=== PATIENT | female | born 1995 | race Caucasian/White ===

== ENCOUNTER 2016-07-19 18:38 | Emergency (ER) | payer BC ==
[~2016-07-19] VITALS: Ht 160 cm; Wt 58.7 kg
[~2016-07-19 18:38] MED LIST: BCPILLS PO; BECL0.072 INH
[2016-07-19 18:51] VITALS: TEMP 37; Ht 160 cm; Wt 58.7 kg
[2016-07-19] MEDS ORDERED: ALBU18002 PO (18:55)
[2016-07-19] MEDS ORDERED: HYCODAN 60ML BOTTLE HOMEPACK PO STA (19:18)
[2016-07-19] MEDS ORDERED: AZITHROMYCIN 250 MG TAB PO STA (19:18)
[2016-07-19] MEDS ORDERED: HYDR5SYP11 PO (19:22)
[2016-07-19] MEDS ORDERED: AZIT250T5 PO (19:22)
--- NOTE | 2016-07-19 19:23 | EMERGENCY ROOM VISIT NOTE ---
History First contact with patient: 19:01 Chief Complaint: RESPIRATORY PROBLEMS Stated Complaint: ASTHMA COUGH, TROUBLE BREATHING, SWOLLEN TONSILS Nursing Triage Summary: pt c/o cough and asthma problems for past month, seen pcp last week and placed on steroids and antibiotic and when she was on steroid she didn't cough but now she is coughing again since steroids are done, tonsils are swollen now also History of Present Illness The patient is a 21 year old female who presents to the Emergency Room via private vehicle with complaints of "asthma cough, trouble reading, swollen tonsils". The patient states that for the past month she has been having problems with her chronic asthma, has been expressing a cough. She states that this all seemed to a began one month ago. The cough is nonproductive in nature. She also notes a tingling sensation in the throat, with some gagging. She states that recently she was home for spring, and was able to see her family doctor who placed her on prednisone and Augmentin. She states that well home and on these medications she was feeling better, but has since returned to school where there is forced air heating in the apartment, and she notes return of her symptoms. She is been using Qvar daily, as well as her rescue inhaler as much as she can. She notes that she finished the antibiotic on Friday, and the steroid shortly before. She notes that the cough is worse in the morning and at night. She states that she feels as that the right lymph nodes in the anterior cervical chain are enlarged, and the right tonsil is inflamed. She also has a sore throat. She denies any history of blood clots. Review of Systems A complete 6-point Review of Systems was discussed with the patient, with pertinent positives and negatives listed in the History of Present Illness. All remaining Review of Systems questions can be considered negative unless otherwise specified. Past Medical/Surgical History Medical Problems: (1) Asthma Family History No pertinent family history Heart disease Social History Smoking Status: Never Smoker Drug Use: none Marital Status: single Housing Status: lives with friends Occupation Status: [employer] student Current/Historical Medications Scheduled Azithromycin (Zithromax), 250 MG PO DAILY Beclomethasone Dipropionate (Qvar), 2 PUFFS INH BID Control Pills ( Control Pills), 1 TAB PO DAILY Scheduled PRN Albuterol Sulfate (Proair Respiclick), 2 PUFF PO DIRECTED PRN for Shortness of Breath Hydrocodone W/ Homatropine (Hycodan 5/1.5MG 5 Ml), 5 ML PO Q4H PRN for Cough Allergies Coded Allergies: No Known Allergies (Unverified , 07/19/16) Physical Exam Vital Signs Date Time Temp Pulse Resp B/P Pulse Ox O2 Delivery O2 Flow Rate FiO2 07/19/16 19:51 60 18 131/64 97 07/19/16 18:51 37.0 79 18 139/94 98 Room Air Physical Exam VITAL SIGNS - Vital signs and nursing notes were reviewed. The patient is afebrile, slightly hypertensive at 139/94, non-tachycardic and is saturating well on room air 98%. GENERAL -21-year-old female appearing her stated age who is in no acute distress. No respiratory distress noted. Patient speaks in full sentences. Communicates well with provider and answers questions appropriately. SKIN - Without rashes. No petechial rashes. HEAD - NC/AT. EYES - Sclera anicteric. Palpebral conjunctiva pink and moist with no injection noted. EARS - No deformities of external structures noted on gross examination bilaterally. No pain elicited with palpation of the tragus bilaterally. External auditory canals without discharge or otorrhea. Tympanic membranes pearly aguilar without retraction or bulging. No fluid or purulent material visualized behind the TM. Handle of malleus, umbo, cone of light, pars tensa/ flaccid all easily visualized. NOSE - Midline and without cyanosis. No epistaxis or purulent drainage noted. Septum midline without deviation or septal hematoma noted. MOUTH/OROPHARYNX - Without perioral cyanosis. Buccal mucosa pink and moist and without leukoplakia. Tongue midline with equal elevation of palate bilaterally. There is unilateral enlargement, 1+ of the right tonsil. Slight erythema with minimal exudate. No airway compromise. No soft palate or uvula enlargement or deviation. Fair dentition noted. NECK - Neck with FROM. Supple to palpation. Right anterior cervical lymphadenopathy noted. No nuchal rigidity. No meningismus. LUNGS - Chest wall symmetric without accessory muscle use, intercostals retractions, or central cyanosis. Normal vesicular breath sounds CTA B/L. minimal wheezing noted bilaterally. No rales, or rhonchi appreciated. CARDIAC - RRR with S1/S2. No murmur, rubs, or gallops appreciated. Medical Decision & Procedures Medications Administered Medications (Trade) Dose Ordered Sig/Esther Route Start Time Stop Time Status Last Admin Dose Admin Azithromycin (Zithromax Tab) 500 mg NOW STAT PO 07/19/16 19:18 07/19/16 19:20 DC 07/19/16 19:37 500 MG Hydrocodone Bit/ Homatropine Methylb (Hycodan Elix Homepack 5/1.5MG/ 5ML) 1 [facility] UD STAT PO 07/19/16 19:18 07/19/16 19:20 DC 07/19/16 19:37 1 [facility] Medical Decision Patient was seen and evaluated as above. After obtaining a thorough history and physical examination it was apparent the patient was experiencing an acute exacerbation of her chronic asthma which I believe is likely secondary to the source of heat in her apartment at school here. She is a [employer] student, and was recently home over spring and noted near resolution of her symptoms with the Augmentin, prednisone and being at home. The source of heat at her home is baseboard which I believe is better for her asthmatic condition, but since returning to school here before staring the apartment appears to be exacerbating her asthma particularly given the history of worsen the morning and at night which would make sense, as these would be times that she spends more around this forced air in the apartment. She is nontoxic in appearance, but does have audible coughing throughout her stay. She was offered a chest x- ray, however after thorough discussion this was declined. I do believe this is reasonable as it is noted that the patient has minimal wheezing but does not have any evidence of consolidation or decreased lung sounds. Because she was recently on a steroid taper I do not wish to start her upon one again. I do believe it may be reasonable well to check for strep throat, therefore she was tested via rapid strep which was found to be negative. This will be sent to lab for culture. Because of her symptoms, and the duration of symptoms I do believe treatment is warranted for potential bronchitis. She'll be placed upon a Z-Josh, with the first day's dose being given here which was 500 mg. The other 250 mg will be sent to her pharmacy. I also would like to provide her some symptomatic relief for the cough, therefore she was provided with the Hycodan cough syrup. She was thoroughly educated upon the concerns of this medication and its use. She was instructed to not use this with the other cough medicine. She declined any chance of . She seemed very happy with plan of care, and was informed that if these symptoms were to return or persist or worsen she is to return here, and follow-up with [facility] or family doctor back home. She was educated upon management of these findings, had questions answered prior to discharge, was educated upon worrisome symptoms which to return, and was discharged home in good condition. In the evaluation and treatment of this patient the following differential diagnoses were entertained: Pneumonia, acute exacerbation of chronic asthma, bronchitis, asthmatic bronchitis, viral pharyngitis, strep pharyngitis, among others. [place] Drug Monitoring Program Search Results: patient reviewed within database, no issues identified Impression Primary Impression: Asthmatic bronchitis Additional Impression: Sorethroat Departure Information Dispostion Home / Self-Care Condition GOOD Prescriptions Azithromycin (ZITHROMAX) 250 Mg Tab 250 MG PO DAILY for 4 Days, #4 TAB Prov: Caleb Wick PA-C 07/19/16 Hydrocodone W/ Homatropine (HYCODAN 5/1.5MG 5 ML) 1 Syp Syp 5 ML PO Q4H Y for Cough, #90 ML Prov: Caleb Wick PA-C 07/19/16 Referrals No Doctor, Assigned (PCP) Patient Instructions My [facility] Additional Instructions You were seen in the emergency department for your sore throat, cough and asthma. The results of your rapid strep screen were found to be Negative. You will be contacted in 48-72 hrs if the results of your culture are found to be positive and any change in antibiotics is necessary. You were prescribed Azithromycin to be taken Daily for the next 4 days. This is an antibiotic. All antibiotics have the potential to cause diarrhea. Stop this medication and contact a medical provider if you were to develop any significant adverse side effects including: wheezing, shortness of breath, passing out, vomiting, or a diffuse rash. Always take antibiotics as directed and COMPLETE the ENTIRE course regardless of the improvement of your symptoms. For pain and fever control, you can use the following staa-ved-ckhtftl medicines (if >12 yo): - Regular strength (325mg/tab) Tylenol (acetaminophen) 2 tabs every 4-6 hours as needed. Do not exceed 12 tablets in a 24 hour period. Avoid taking more than 4 grams (4000 mg) of Tylenol per day. This includes any other sources of acetaminophen you may take on a regular basis. - Regular strength (200 mg/tab) Advil (ibuprofen) 1-2 tabs every 4-6 hours as needed. Do not exceed a dose of 3200 mg per day. - For best results, alternate dosing of Tylenol and Advil. In addition to your prescribed medications, you can also use the following home remedies: - Warm salt-water gargles 3 times per day can soothe your throat and help to fight infection. - Warm tea with honey can soothe your throat. Return to the emergency department if your symptoms persist or worsen over the next 2-3 days despite treatment course outlined above. Return to the emergency department if you develop the following symptoms of: inability to swallow solids , liquids, or drool; excessive wheezing or inability to catch your breath; or intractable fever or pain. For your cough you have been prescribed Hycodan cough syrup. This is a controlled medication which makes illegal for you to drive or operate machinery after ingesting this medication. This is 5 mL's every 4-6 hours as needed for your cough. Follow up with your primary care provider in 2-3 days from today's emergency department visit. Problem Qualifiers Primary Impression: Asthmatic bronchitis Asthma complication type: with acute exacerbation
[2016-07-19 19:51] VITALS: BP 131/64; PULSE 60; O2SAT 97
== END 2016-07-19 19:52 | disposition home or self-care (01) ==
LOC: C.EDB 18:39 → C.EDD 19:52
DX: J02.9 Acute pharyngitis, unspecified (principal); J45.909 Unspecified asthma, uncomplicated; Z82.49 Family history of ischemic heart disease and other diseases of the circulatory system